=== PATIENT | female | born 2000 | race Caucasian/White ===

== ENCOUNTER 2022-11-05 06:24 | Day surgery (SDC) | payer BC ==
[2022-11-03 14:11] VITALS: BMI 51.0
[2022-11-05 08:25] LABS: BHCG - Serum Negative (NEGATIVE); Pregs Control Background? CLEAR/WHITE (CLR/WHITE); Pregs Control Bar Appear? YES (CONTROL BAR)
[2022-11-05] MEDS ORDERED: Midazolam HCl 2 mg/2 ml Vial ONE (08:58)
[2022-11-05] MEDS ORDERED: fentaNYL PF 100 MCG/2 ML SYRINGE ONE (08:58)
[2022-11-05] MEDS ORDERED: PROPOFOL 200 MG/20 ML VIAL ONE (09:06)
[2022-11-05] MEDS ORDERED: Ondansetron PF 4 MG/2 ML Vial ONE (09:06)
[2022-11-05] MEDS ORDERED: Lidocaine 1% PF 5 ML VIAL ONE (09:06)
[2022-11-05] MEDS ORDERED: Dexamethasone 20 MG/5 ML VIAL ONE (09:06)
[2022-11-05] MEDS ORDERED: Fentanyl 100 MCG/2 ML VIAL ONE (09:54)
[2022-11-05] MEDS ORDERED: Hydrocodone-Acetamin 15 ML UDCUP ONE (10:46)
== END 2022-11-05 12:01 | disposition home or self-care (01) ==
LOC: SDC 06:24
PROVIDERS: ATTEND Specialist
PROC: 0CTPXZZ Resection of Tonsils, External Approach (ICD-10-PCS; principal; 2022-11-05)
DX: J35.01 Chronic tonsillitis (principal); G47.33 Obstructive sleep apnea (adult) (pediatric); Z87.891 Personal history of nicotine dependence; Z88.8 Allergy status to other drugs, medicaments and biological substances
CPT/HCPCS: 84703; 85014; 88304; J1100; J2250; J2405; J2704; J3010